=== PATIENT | female | born 1940 | race Caucasian/White ===

== ENCOUNTER 2022-10-15 10:41 | Outpatient (REF) | payer MEDICARE, MEDICAID, SELFPAY ==
[2022-10-15 17:13] LABS: Anion Gap 7.1 mmol/L (3-11); BUN 41 mg/dL (7-18); CO2 30.9 mmol/L (21.0-32.0); CREATININE 1.1 mg/dL (0.55-1.02); Calcium 9.8 mg/dL (8.5-10.1); Chloride 103 mmol/L (98-107); Estimated GFR 51.11 (mL/min/1.73m2); Glucose 101 mg/dL (74-106); Magnesium 1.9 mg/dL (1.8-2.4); Sodium 141 mmol/L (136-145); Vitamin B12 787 pg/mL (193-986)
[2022-10-15 17:14] LABS: Vitamin D 25 Total 93.7 ng/mL (30-100)
== END 2022-10-15 10:42 | disposition home or self-care (01) ==
LOC: NCHCN 10:41
PROVIDERS: PCP Nurse Practitioner Family; Visit Provider Nurse Practitioner Family
DX: M81.0 Age-related osteoporosis without current pathological fracture (principal); I10 Essential (primary) hypertension; E55.9 Vitamin D deficiency, unspecified; K59.00 Constipation, unspecified; R32 Unspecified urinary incontinence; G80.3 Athetoid cerebral palsy
CPT/HCPCS: 80048; 82306; 82607; 83735

== ENCOUNTER 2022-11-26 02:34 | Outpatient (CLI) | payer MEDICARE, MEDICAID, SELFPAY ==
[2022-11-26 13:37] LABS: Anion Gap 8.7 mmol/L (3-11); BUN 42 mg/dL (7-18); CO2 24.3 mmol/L (21.0-32.0); CREATININE 1.4 mg/dL (0.55-1.02); Calcium 9.5 mg/dL (8.5-10.1); Chloride 107 mmol/L (98-107); Estimated GFR 38.03 (mL/min/1.73m2); Glucose 146 mg/dL (74-106); Potassium 4.8 mmol/L (3.5-5.1); Sodium 140 mmol/L (136-145)
== END 2022-11-26 02:35 | disposition home or self-care (01) ==
PROVIDERS: PCP Nurse Practitioner Family; Visit Provider Internal Medicine Rheumatology
DX: Z79.899 Other long term (current) drug therapy (principal)
CPT/HCPCS: 36415; 80048

== ENCOUNTER 2023-02-06 09:27 | Outpatient (REF) | payer MEDICARE, MEDICAID, SELFPAY ==
[2023-02-06 15:40] LABS: Vitamin D 25 Total 55.5 ng/mL (30-100)
[2023-02-07 08:24] LABS: HBs Antibody, Quant 64.9 mIU/mL (See Note); Hepatitis B Surface Ab Positive (See Note)
[2023-02-07 10:59] LABS: Hep A Total Ab w Rflx IgM Positive (Negative)
[2023-02-07 11:26] LABS: Measles IgG Antibody Positive (See Note); Mumps Antibody IgG Positive (See Note); Varicella IgG Antibody Positive (See Note)
[2023-02-07 11:27] LABS: Rubella IgG Ab (UVM) Positive (See Note)
[2023-02-07 12:31] LABS: Hep A Antibody IgM Negative (Negative)
== END 2023-02-06 09:28 | disposition home or self-care (01) ==
LOC: NCHCN 09:27
PROVIDERS: PCP Nurse Practitioner Family; Visit Provider Nurse Practitioner Family
DX: N18.31 Chronic kidney disease, stage 3a (principal); Z11.59 Encounter for screening for other viral diseases; Z01.84 Encounter for antibody response examination; I10 Essential (primary) hypertension; E55.9 Vitamin D deficiency, unspecified
CPT/HCPCS: 82306; 86706; 86709; 86787; 86735; 86762; 86765

== ENCOUNTER 2023-04-03 09:20 | Outpatient (REF) | payer MEDICARE, MEDICAID, SELFPAY ==
[2023-04-03 15:33] LABS: Hemoglobin A1C 6.1 % (<5.7)
[2023-04-03 15:37] LABS: Anion Gap 10.2 mmol/L (3-11); BUN 57 mg/dL (7-18); CO2 22.8 mmol/L (21.0-32.0); CREATININE 1.5 mg/dL (0.55-1.02); Calcium 9.5 mg/dL (8.5-10.1); Chloride 112 mmol/L (98-107); Estimated GFR 35.01 (mL/min/1.73m2); Glucose 102 mg/dL (74-106); Potassium 5.1 mmol/L (3.5-5.1); Sodium 145 mmol/L (136-145)
== END 2023-04-03 09:21 | disposition home or self-care (01) ==
LOC: NCHCN 09:20
PROVIDERS: PCP Nurse Practitioner Family; Visit Provider Nurse Practitioner Family
DX: M81.0 Age-related osteoporosis without current pathological fracture; I10 Essential (primary) hypertension; E78.00 Pure hypercholesterolemia, unspecified; G80.3 Athetoid cerebral palsy; R13.10 Dysphagia, unspecified; K59.00 Constipation, unspecified; N18.31 Chronic kidney disease, stage 3a
CPT/HCPCS: 80048; 83036

== ENCOUNTER 2023-07-17 11:15 | Outpatient (REF) | payer MEDICARE, MEDICAID, SELFPAY ==
[2023-07-17 16:48] LABS: Anion Gap 9.9 mmol/L (3-11); BUN 36 mg/dL (7-18); CO2 27.1 mmol/L (21.0-32.0); CREATININE 1.1 mg/dL (0.55-1.02); Calcium 9.6 mg/dL (8.5-10.1); Chloride 105 mmol/L (98-107); Glucose 95 mg/dL (74-106); Potassium 4.7 mmol/L (3.5-5.1); Sodium 142 mmol/L (136-145)
== END 2023-07-17 11:16 | disposition home or self-care (01) ==
LOC: NCHCN 11:15
PROVIDERS: PCP Nurse Practitioner Family; Visit Provider Nurse Practitioner Family
DX: E55.9 Vitamin D deficiency, unspecified (principal); R05.8 Other specified cough; N18.31 Chronic kidney disease, stage 3a; K59.00 Constipation, unspecified; R13.10 Dysphagia, unspecified; G80.3 Athetoid cerebral palsy; F91.3 Oppositional defiant disorder; I10 Essential (primary) hypertension
CPT/HCPCS: 80048; 82306

== ENCOUNTER 2023-11-18 14:37 | Outpatient (REF) | payer MEDICARE, MEDICAID, SELFPAY ==
[2023-11-18 14:38] LABS: Bilirubin Negative (Negative); Blood Negative (Negative); Clarity Clear (Clear); Glucose Negative (Negative); Ketones Negative (Negative); Leukocyte Esterase Moderate (Negative); Nitrite Negative (Negative); Specific Gravity 1.015 (1.005-1.025); Urobilinogen 0.2 mg/dL (Up to 0.2)
[2023-11-18 15:03] LABS: Bacteria Few HPF (Negative); Crystals Negative HPF (Negative); Epithelial Cells Many HPF (Negative); Mucus Negative (Negative); Other Cells Moderate Renal (Negative); RBC 0-2 HPF (0-2)
[2023-11-18 15:04] LABS: C & S Indicated? No/Sq. Contamination; Casts Negative LPF (Negative)
== END 2023-11-18 14:38 | disposition home or self-care (01) ==
LOC: NCHCN 14:37
PROVIDERS: PCP Nurse Practitioner Family; Visit Provider Nurse Practitioner Family
DX: R82.998 Other abnormal findings in urine (principal); R32 Unspecified urinary incontinence
CPT/HCPCS: 81003; 81015

== ENCOUNTER 2024-09-07 08:55 | Outpatient (REF) | payer MEDICARE, MEDICAID, SELFPAY ==
[2024-09-07 15:26] LABS: Anion Gap 11.1 mmol/L (3-11); BUN 41 mg/dL (7-18); CO2 27.9 mmol/L (21.0-32.0); CREATININE 1.1 mg/dL (0.55-1.02); Calcium 9.6 mg/dL (8.5-10.1); Chloride 103 mmol/L (98-107); Estimated GFR 50.48 (mL/min/1.73m2); Glucose 116 mg/dL (74-106); Potassium 4.3 mmol/L (3.5-5.1); Sodium 142 mmol/L (136-145)
[2024-09-07 21:37] LABS: Bilirubin Negative (Negative); Blood Negative (Negative); Clarity Clear (Clear); Glucose Negative (Negative); Ketones Negative (Negative); Leukocyte Esterase Trace (Negative); Nitrite Negative (Negative); Urobilinogen 0.2 mg/dL (Up to 0.2)
[2024-09-07 21:56] LABS: Microalb ug/mg Crea 7.7 ug/mg Cr
[2024-09-07 21:57] LABS: Bacteria Rare HPF (Negative); C & S Indicated? No; Casts Negative LPF (Negative); Crystals Negative HPF (Negative); Epithelial Cells Rare HPF (Negative); Mucus Negative (Negative); Other Cells Rare Transitional (Negative); RBC 0-2 HPF (0-2); WBC 0-2 HPF (0-5)
== END 2024-09-07 08:56 | disposition home or self-care (01) ==
LOC: NCHCN 08:55
PROVIDERS: PCP Nurse Practitioner Family; Visit Provider Nurse Practitioner Family
DX: M54.59 Other low back pain (principal); I10 Essential (primary) hypertension
CPT/HCPCS: 80048; 81003; 81015; 82043; 82570

== ENCOUNTER 2025-01-03 10:26 | Outpatient (REF) | payer MEDICARE, MEDICAID, SELFPAY ==
[2025-01-03 15:01] LABS: Anion Gap 7.9 mmol/L (3-11); BUN 43 mg/dL (7-18); CO2 27.1 mmol/L (21.0-32.0); CREATININE 1.2 mg/dL (0.55-1.02); Chloride 107 mmol/L (98-107); Estimated GFR 45.19 (mL/min/1.73m2); Glucose 158 mg/dL (74-106); Potassium 4.6 mmol/L (3.5-5.1); Sodium 142 mmol/L (136-145)
== END 2025-01-03 10:27 | disposition home or self-care (01) ==
LOC: NCHCN 10:26
PROVIDERS: PCP Nurse Practitioner Family; Visit Provider Nurse Practitioner Family
DX: N18.31 Chronic kidney disease, stage 3a (principal)
CPT/HCPCS: 80048

== ENCOUNTER → 2025-04-13 13:59 | Outpatient (BNVA) | payer MEDICARE, MEDICAID, SELFPAY | PROVIDERS: PCP Nurse Practitioner Family; Referring Provider Nurse Practitioner Family; Visit Provider Podiatrist | DX: B35.1 Tinea unguium (principal); L60.3 Nail dystrophy; N18.30 Chronic kidney disease, stage 3 unspecified; G62.9 Polyneuropathy, unspecified; G81.94 Hemiplegia, unspecified affecting left nondominant side | CPT/HCPCS: 99203 ==

== ENCOUNTER 2025-08-02 10:29 | Outpatient (REF) | payer MEDICARE, MEDICAID, SELFPAY ==
[2025-08-02 15:43] LABS: Anion Gap 8.4 mmol/L (3-11); BUN 32 mg/dL (7-18); CO2 30.6 mmol/L (21.0-32.0); Calcium 9.9 mg/dL (8.5-10.1); Chloride 105 mmol/L (98-107); Glucose 103 mg/dL (74-106); Potassium 4.5 mmol/L (3.5-5.1); Sodium 144 mmol/L (136-145)
== END 2025-08-02 10:30 | disposition home or self-care (01) ==
LOC: NCHCN 10:29
PROVIDERS: PCP Nurse Practitioner Family; Visit Provider Nurse Practitioner Family
DX: M81.0 Age-related osteoporosis without current pathological fracture (principal)
CPT/HCPCS: 80048

== ENCOUNTER → 2025-08-10 11:00 | Outpatient (BNVA) | payer MEDICARE, MEDICAID, SELFPAY | PROVIDERS: PCP Nurse Practitioner Family; Referring Provider Nurse Practitioner Family; Visit Provider Podiatrist | DX: L60.3 Nail dystrophy (principal); B35.1 Tinea unguium; N18.30 Chronic kidney disease, stage 3 unspecified; G62.9 Polyneuropathy, unspecified; G81.94 Hemiplegia, unspecified affecting left nondominant side | CPT/HCPCS: 99213 ==